=== PATIENT | female | born 1955 | race Caucasian/White ===

== ENCOUNTER 2018-03-29 08:53 | Outpatient (CLI) | payer OTHER | END 2018-03-29 08:56 | disposition home or self-care (01) | LOC: MAMO-SONO 08:53 | DX: Z12.31 Encounter for screening mammogram for malignant neoplasm of breast (principal); N60.11 Diffuse cystic mastopathy of right breast; N60.12 Diffuse cystic mastopathy of left breast ==

== ENCOUNTER 2020-01-24 14:09 | Outpatient (CLI) | payer OTHER | END 2020-01-24 14:15 | disposition home or self-care (01) | LOC: RAD 14:09 | PROVIDERS: ATTEND Orthopaedic Surgery Orthopaedic Surgery of the Spine | DX: M41.20 Other idiopathic scoliosis, site unspecified (principal) ==

== ENCOUNTER 2021-09-30 11:17 | Outpatient (CLI) | payer OTHER | END 2021-09-30 11:18 | disposition home or self-care (01) | LOC: LAB 11:17 | DX: D64.9 Anemia, unspecified (principal); B97.89 Other viral agents as the cause of diseases classified elsewhere; D68.9 Coagulation defect, unspecified ==

== ENCOUNTER → 2022-05-05 08:13 | Outpatient (CLI) | payer OTHER | END | disposition home or self-care (01) | LOC: LAB 08:13 | PROVIDERS: ATTEND General Practice | DX: D50.0 Iron deficiency anemia secondary to blood loss (chronic) (principal); E78.00 Pure hypercholesterolemia, unspecified; N39.0 Urinary tract infection, site not specified; E11.65 Type 2 diabetes mellitus with hyperglycemia; Z13.29 Encounter for screening for other suspected endocrine disorder; R97.0 Elevated carcinoembryonic antigen [CEA]; R79.82 Elevated C-reactive protein (CRP); M06.9 Rheumatoid arthritis, unspecified; R82.90 Unspecified abnormal findings in urine; Z13.89 Encounter for screening for other disorder; Z12.11 Encounter for screening for malignant neoplasm of colon; Z11.3 Encounter for screening for infections with a predominantly sexual mode of transmission ==

== ENCOUNTER 2022-12-09 15:38 | Outpatient (CLI) | payer OTHER | END 2022-12-09 15:43 | disposition home or self-care (01) | LOC: RAD 15:38 | DX: M41.20 Other idiopathic scoliosis, site unspecified (principal) ==

== ENCOUNTER → 2023-05-10 09:06 | Outpatient (CLI) | payer OTHER ==
[2023-05-10 09:46] LABS: HEMATOCRIT 38.4 % (36.0-45.00); HEMOGLOBIN 13.3 g/dL (12.0-15.00); MEAN CORPUSCULAR HEMOGLOBIN 32.8 pg (27.00-32.0); MEAN CORPUSCULAR HGB CONC 34.6 g/dl (32.0-36.0); PLATELET COUNT 261 K/uL (150-450); RED BLOOD COUNT 4.04 M/uL (4.00-6.00); RED CELL DISTRIBUTION WIDTH 13.4 % (11.5-14.5)
[2023-05-10 10:18] LABS: INR 0.96; PARTIAL THROMBOPLASTIN TIME 26.7 SECONDS (22.0-34.0); PROTHROMBIN TIME 10.1 SECONDS (9.0-11.5)
[2023-05-10 10:22] LABS: ALBUMIN 3.9 gm/dL (3.4-5.0); BILIRUBIN TOTAL 0.66 mg/dL (0.3-1.2); CALCIUM 9.6 mg/dL (8.5-10.1); CREATININE SERUM 0.56 mg/dL (0.55-1.02); GFR 107.65; GLOBULINA 3.3 G/DL (2.4-3.5); POTASSIUM 4.23 mEq/L (3.5-5.1); TOTAL PROTEIN 7.2 gm/dL (6.4-8.2)
[2023-05-10 10:42] LABS: PH,URINE 5.5 (5.0-8.0); URINE APPEARANCE Clear; URINE BILIRRUBIN Negative (NEGATIVE); URINE BLOOD Trace; URINE COLOR Yellow; URINE GLUCOSE Negative (NEGATIVE); URINE LEUKOCYTE Negative; URINE NITRATE Negative; URINE PROTEIN Negative (NEGATIVE); URINE UROBILINOGEN 0.2 E.U./dl
[2023-05-10 10:48] LABS: URINE BACTERIA 696.7 uL (0.0-1933); URINE EPITHELIAL CELLS 39.5 uL (0.0-38.8); URINE RBC 3.4 uL (0.0-20.8); URINE WBC 10.8 uL (0.0-23.2)
== END | disposition home or self-care (01) ==
LOC: LAB 09:06
PROVIDERS: ATTEND Podiatrist Foot Surgery
DX: D68.8 Other specified coagulation defects (principal); M20.12 Hallux valgus (acquired), left foot

== ENCOUNTER 2023-08-15 13:53 | Outpatient (CLI) | payer OTHER | END 2023-08-15 13:57 | disposition home or self-care (01) | LOC: MRI 13:53 | DX: G57.01 Lesion of sciatic nerve, right lower limb (principal) | CPT/HCPCS: 73218 ==

== ENCOUNTER → 2023-12-19 09:05 | Outpatient (CLI) | payer OTHER ==
[2023-12-19 09:54] LABS: HEMATOCRIT 36.2 % (36.0-45.00); HEMOGLOBIN 12.5 g/dL (12.0-15.00); MEAN CELL VOLUME 92.7 fL (80.00-100.00); MEAN CORPUSCULAR HGB CONC 34.6 g/dl (32.0-36.0); PLATELET COUNT 247 K/uL (150-450); RED CELL DISTRIBUTION WIDTH 14.8 % (11.5-14.5)
[2023-12-19 10:24] LABS: PH,URINE 5.5 (5.0-8.0); URINE BILIRRUBIN Negative (NEGATIVE); URINE BLOOD Negative; URINE COLOR Yellow; URINE GLUCOSE Negative (NEGATIVE); URINE LEUKOCYTE Trace; URINE NITRATE Negative; URINE PROTEIN Negative (NEGATIVE); URINE UROBILINOGEN 0.2 E.U./dl
[2023-12-19 10:26] LABS: URINE BACTERIA 4815.6 uL (0.0-1933); URINE EPITHELIAL CELLS 104.6 uL (0.0-38.8); URINE RBC 8.8 uL (0.0-20.8); URINE WBC 116.8 uL (0.0-23.2)
[2023-12-19 10:32] LABS: URINE APPEARANCE CLEAR
[2023-12-19 11:09] LABS: ALBUMIN 3.8 gm/dL (3.4-5.0); BILIRUBIN TOTAL 0.47 mg/dL (0.3-1.2); CALCIUM 9.3 mg/dL (8.5-10.1); CHOL HDL RATIO 3.8 (0-5.0); CREATININE SERUM 0.67 mg/dL (0.55-1.02); GFR 87.27; GLOBULINA 3.1 G/DL (2.4-3.5); POTASSIUM 4.05 mEq/L (3.5-5.1); TOTAL PROTEIN 6.9 gm/dL (6.4-8.2); TSH 1.28 uIU/mL (0.358-3.74)
== END | disposition home or self-care (01) ==
LOC: LAB 09:05
DX: D64.9 Anemia, unspecified (principal); Z12.11 Encounter for screening for malignant neoplasm of colon; E03.8 Other specified hypothyroidism; N95.1 Menopausal and female climacteric states; I10 Essential (primary) hypertension; C51.9 Malignant neoplasm of vulva, unspecified; N30.00 Acute cystitis without hematuria; E83.51 Hypocalcemia; A64 Unspecified sexually transmitted disease; N39.0 Urinary tract infection, site not specified; R97.8 Other abnormal tumor markers; R79.89 Other specified abnormal findings of blood chemistry; E55.9 Vitamin D deficiency, unspecified; A60.9 Anogenital herpesviral infection, unspecified

== ENCOUNTER 2023-12-19 10:36 | Outpatient (CLI) | payer OTHER | END 2023-12-19 10:45 | disposition home or self-care (01) | LOC: MAMO-SONO 10:36 | PROVIDERS: ATTEND Obstetrics & Gynecology | DX: N60.11 Diffuse cystic mastopathy of right breast (principal); N60.12 Diffuse cystic mastopathy of left breast; Z12.31 Encounter for screening mammogram for malignant neoplasm of breast ==

== ENCOUNTER 2024-02-28 08:47 | Outpatient (CLI) | payer OTHER ==
[2024-02-28 09:55] LABS: PH,URINE 5.5 (5.0-8.0); URINE APPEARANCE Clear; URINE BILIRRUBIN Negative (NEGATIVE); URINE BLOOD Negative; URINE COLOR Dark Yellow; URINE GLUCOSE Negative (NEGATIVE); URINE KETONE Trace (NEGATIVE); URINE LEUKOCYTE Negative; URINE NITRATE Negative; URINE PROTEIN Negative (NEGATIVE); URINE UROBILINOGEN 0.2 E.U./dl
[2024-02-28 09:57] LABS: URINE EPITHELIAL CELLS 41.2 uL (0.0-38.8); URINE RBC 10.5 uL (0.0-20.8); URINE WBC 25.6 uL (0.0-23.2)
== END 2024-02-28 08:54 | disposition home or self-care (01) ==
LOC: LAB 08:47
PROVIDERS: ATTEND Obstetrics & Gynecology
DX: N39.0 Urinary tract infection, site not specified (principal)

== ENCOUNTER 2024-04-02 10:57 | Outpatient (CLI) | payer OTHER | END 2024-04-02 11:22 | disposition home or self-care (01) | LOC: RAD 10:57 | DX: M25.551 Pain in right hip (principal); M25.552 Pain in left hip; M41.20 Other idiopathic scoliosis, site unspecified ==